=== PATIENT | female | born 1970 | race Caucasian/White ===

== ENCOUNTER 2018-03-18 09:18 | Emergency (ER) | payer BC, SELFPAY ==
[2018-03-18] MEDS ORDERED: HYDROcodone/Acetaminophen 10/325 mg Tablet ONE (09:42)
--- NOTE | 2018-03-18 10:04 | RAD ---
LEFT FOOT THREE VIEWS: History: Trauma, fall. Comparison: None. FINDINGS: There is osteonecrosis, chronic, of the second metatarsal head with reactive secondary degenerative c hanges of the proximal phalanx base of the 2nd toe. Mildly displaced plantar and dorsal calcaneal spu rs. The lisfranc interval appears to be maintained. No acute displaced fracture or malalignment is apprec iated. IMPRESSION: 1. No acute displaced fracture or malalignment. 2. Moderate midfoot degenerative changes. 3. Chronic osteonecrosis of the second metatarsal head and secondary degenerative changes of the prox imal phalanx base. POS: INDY
--- NOTE | 2018-03-18 10:08 | RAD ---
LEFT ANKLE 3 VIEWS: HISTORY: Ankle pain after falling in a parking lot at [email or web address]. FINDINGS: Tiny bony density adjacent to the tip of the medial malleolus may represent an accessory ossicle or p ossibly be related to an old injury. It is corticated and does not appear acute. I do not see any d efinite joint effusion. Calcaneal spurs are noted. There are arthritic changes of the tarsal bone r egion. IMPRESSION: No acute injury. POS: INDY
== END 2018-03-18 10:37 | disposition home or self-care (01) ==
LOC: ERS 09:18
DX: S93.402A Sprain of unspecified ligament of left ankle, initial encounter (principal); E78.5 Hyperlipidemia, unspecified; F32.9 Major depressive disorder, single episode, unspecified; E03.9 Hypothyroidism, unspecified; Z87.891 Personal history of nicotine dependence; Z79.899 Other long term (current) drug therapy